=== PATIENT | male | born 1985 | race Two or more races ===

== ENCOUNTER 2021-11-17 18:35 | Emergency (ER) | payer OTHER ==
[~2021-11-17] VITALS: Ht 180.3 cm; Wt 78.0 kg
[2021-11-17 23:26] LABS: BASOPHILS % 0.6 % (0.0-2.0); EOSINOPHILS % 3.2 % (0.0-5.0); HEMATOCRIT. 42.1 % (42.0-52.0); HEMOGLOBIN. 13.9 g/dL (14.0-18.0); LYMPHOCYTES % 22.9 % (20.0-50.0); MEAN CORPUSCULAR VOLUME 87.5 fL (80.0-94.0); MEAN PLATELET VOLUME 8.1 fl (7.4-10.4); MONOCYTES % 7.3 % (2.0-8.0); PLATELET 284 x1000/uL (130-400); RED CELL DISTRIBUTION WIDTH 15.1 % (11.6-14.6)
[2021-11-17 23:33] LABS: CHLORIDE 106 mEq/L (98-107)
[2021-11-17 23:38] LABS: ETHANOL BLOOD < 10 mg/dL
[2021-11-18 01:35] LABS: CLARITY URINE CLEAR (CLEAR); COLOR URINE YELLOW (YELLOW); KETONES URINE NEGATIVE (NEGATIVE); LEUKOCYTE ESTERASE URINE NEGATIVE (NEGATIVE); NITRITE URINE NEGATIVE (NEGATIVE); OCCULT BLOOD URINE NEGATIVE (NEGATIVE); PH URINE 6.5 (4.5-8.0); PROTEIN URINE NEGATIVE (NEGATIVE)
[2021-11-18 01:45] LABS: *AMPHETAMINES SCREEN URINE PRESUMTIVE POSITIVE (NEGATIVE); *BARBITURATES SCREEN URINE PRESUMTIVE POSITIVE (NEGATIVE); *BENZODIAZEPINES SCREEN URINE NEGATIVE (NEGATIVE); *COCAINE SCREEN URINE NEGATIVE (NEGATIVE)
[2021-11-18 01:46] LABS: CANNABINOID URINE SCREEN PRESUMTIVE POSITIVE (NEGATIVE); METHADONE URINE SCREEN NEGATIVE (NEGATIVE); OPIATES URINE SCREEN NEGATIVE (NEGATIVE); PHENCYCLIDINE URINE SCREEN NEGATIVE (NEGATIVE)
[2021-11-18] MEDS: BUSPIRONE HCL 5MG TABLET PO SCH ×2 (10:16→20:57)
[2021-11-18] MEDS: OLANZAPINE 5MG TABLET PO SCH ×2 (10:16→20:56)
[2021-11-18] MEDS ORDERED: TRAZODONE HCL 50MG TABLET PO SCH (21:00)
[2021-11-19] MEDS ORDERED: OLANZAPINE 10MG TABLET PO SCH (09:00)
[2021-11-19] MEDS ORDERED: BUSPIRONE HCL 5MG TABLET PO SCH (09:00)
[2021-11-19 12:30] VITALS: BP 127/68
== END 2021-11-19 13:12 ==
LOC: ER 18:35
DX: T14.91XA Suicide attempt, initial encounter (principal); Y93.02 Activity, running; Y92.488 Other paved roadways as the place of occurrence of the external cause; F33.1 Major depressive disorder, recurrent, moderate; R45.850 Homicidal ideations; F20.9 Schizophrenia, unspecified; G62.9 Polyneuropathy, unspecified; M54.89 Other dorsalgia; F13.10 Sedative, hypnotic or anxiolytic abuse, uncomplicated; F15.10 Other stimulant abuse, uncomplicated; F12.10 Cannabis abuse, uncomplicated; F11.10 Opioid abuse, uncomplicated; Z20.822 Contact with and (suspected) exposure to COVID-19; Z91.51 Personal history of suicidal behavior; Z75.1 Person awaiting admission to adequate facility elsewhere
CPT/HCPCS: 36415; 80053; 80305; 80307; 80320; 80329; 81003; 85025; 99283; C9803; U0003; U0005; G0480